=== PATIENT | female | born 1945 | race Hispanic/Latino ===

== ENCOUNTER 2019-01-10 15:33 | Emergency (ER) | payer MEDICARE ==
[~2019-01-10] VITALS: Ht 157.5 cm; Wt 59.9 kg
--- OUTSIDE RECORDS SUMMARY | 2019-01-10 15:37 | XMS REPORT | CCD ---
Author Author Auto Generated Organization [facility] Address Unknown Phone Unavailable Care Team Providers Care Merchandising Professor Name Role Phone Peter Do RP [phone] Hernan Ott CP Allergies, Adverse Reactions, Alerts Substance Reaction Status NKDA Active Problem List Condition Effective Dates Status Basal cell carcinoma of cheek Active GERD - Gastro-esophageal reflux disease Active Hyperlipidemia Active Hyperlipidemia Active Hypertension Active Hypertension Active Medications Medication Instructions Start Date End Date Status ondansetron 4 mg, 2 mL, Route: IVP, Drug form: 06/06/2013 06/07/2013 Discontinued INJ, ONCE, Dosing Weight 61.818, kg, PRN Nausea & Vomiting, Start date: 06/06/13 13:10:00(Same as: Zofran) naloxone 0.04 mg, 0.1 mL, Route: IVP, Drug 06/06/2013 06/07/2013 Completed form: INJ, Q2MIN, Dosing Weight 61.818, kg, PRN Narcotic Reversal, Start date: 06/06/13 13:10:00, Duration: 8 doses or times, Stop date: 06/07/13 0:00:00Same as Narcan flumazenil 0.2 mg, 2 mL, Route: IVP, Drug 06/06/2013 06/07/2013 Discontinued form: INJ, PRN, Dosing Weight 61.818, kg, PRN Benzodiazepine Reversal, Initial dose, Start date: 06/06/13 13:10:00, Duration: 1 day, Stop date: 06/07/13 13:09:00(Same as: Romazicon) hydromorphone 0.5 mg, 0.25 mL, Route: IVP, Drug 06/06/2013 06/07/2013 Completed form: INJ, Q5Min, Dosing Weight 61.818, kg, PRN Pain Score 7-10, Start date: 06/06/13 13:10:00, Duration: 5 doses or times, Stop date: 06/07/13 0:00:00(Same as: Dilaudid) Calcium 600 +D oral 1 tab, PO, TID, 270 tab, 06/06/2013 Ordered tablet Substitution Allowed, Maintenance, TAB Ancef 1 gm, Route: IVPB, ONCE, Dosing 06/06/2013 06/06/2013 Completed Weight 61.818, kg, Start date: 06/06/13 12:26:00, Duration: 1 doses or times, Stop date: 06/06/13 12:26:00 Crestor 20 mg oral 20 mg, 1 tab, PO, Daily, 30 tab, 06/05/2013 Ordered tablet Substitution Allowed, TAB Mel 5 mg-40 mg oral 1 tab, PO, Daily, 30 tab, 06/05/2013 Ordered tablet Substitution Allowed, Maintenance, TAB Vital Signs Most recent to oldest [Reference Range]: 1 2 3 Height 157.48 cm (06/06/2013 10:32:00) 152.4 cm (06/05/2013 11:45:00) Systolic Blood Pressure [90-140 mmHg] 144 mmHg *HI* (06/06/2013 13:55:00) 133 mmHg (06/06/2013 13:30:00) 120 mmHg (06/06/2013 13:15:00) Diastolic Blood Pressure [60-90 mmHg] 65 mmHg (06/06/2013 13:55:00) 64 mmHg (06/06/2013 13:30:00) 60 mmHg (06/06/2013 13:15:00) Respiratory Rate [14-20 BRMIN] 18 BRMIN (06/06/2013 13:55:00) 0 BRMIN *LOW* (06/06/2013 13:30:00) 0 BRMIN *LOW* (06/06/2013 13:15:00) Peripheral Pulse Rate [60-100 bpm] 87 bpm (06/06/2013 13:55:00) 105 bpm *HI* (06/06/2013 10:32:00) Weight 61.818 kg (06/06/2013 10:32:00) 61.818 kg (06/05/2013 11:45:00) Results CHEMISTRY Most recent to oldest [Reference Range]: 1 Sodium Lvl [135-145 mEq/L] 141 mEq/L (06/06/2013 11:00:55) Potassium Lvl [3.5-5.1 mEq/L] 4.2 mEq/L (06/06/2013:00:55) Chloride Lvl [95-109 mEq/L] 105 mEq/L (06/06/2013:00:55) CO2 [24-32 mEq/L] 25 mEq/L (06/06/2013:00:55) AGAP [10.0-20.0 mEq/L] 15.2 mEq/L (06/06/2013:00:55) Creatinine Lvl [0.5-1.4 mg/dL] 1.0 mg/dL (06/06/2013:00:55) eGFR 59 mL/min/1.73m2 1 *NA* (06/06/2013:00:55) BUN [7-22 mg/dL] 25 mg/dL *HI* (06/06/2013:00:55) Glucose Lvl [70-99 mg/dL] 102 mg/dL 2 *HI* (06/06/2013:00:55) Calcium Lvl [8.5-10.5 mg/dL] 9.5 mg/dL (06/06/2013:00:55) 1Result Comment: The eGFR is calculated using the CKD-EPI formula. In most young, healthy individuals the eGFR will be >90 mL/min/1.73m2. The eGFR declines with age. An eGFR of 60-89 may be normal in some populations, particularly the elderly, for whom the CKD-EPI formula has not been extensively validated. Use of the eGFR is not recommended in the following populations: Individuals with unstable creatinine concentrations, including patients and those with serious co-morbid conditions. Patients with extremes in muscle mass or diet. The data above are obtained from the National Kidney Disease Education Program ( NKDEP) which additionally recommends that when the eGFR is used in patients with extremes of body mass index for purposes of drug dosing, the eGFR should be mul tiplied by the estimated BMI. 2Interpretive Data: Adult reference range values reflect the clinical guidelines of the [place] Diabetes [employer]. Procedures Procedures Date Related Diagnosis Excision
--- OUTSIDE RECORDS SUMMARY | 2019-01-10 15:37 | XMS REPORT | CCD ---
Author Author Auto Generated Organization [facility] [place] [place] Address Unknown Phone Unavailable Care Team Providers Care Electron Gun Inspector Name Role Phone Peter Do RP [phone] Hernan Ott CP Allergies, Adverse Reactions, Alerts [...] values reflect the clinical guidelines of the [place] Diabetes Association. Procedures Procedures Date Related Diagnosis Excision
--- OUTSIDE RECORDS SUMMARY | 2019-01-10 15:37 | XMS REPORT | CCD ---
Author Author Auto Generated Organization [facility] Address Unknown Phone Unavailable Care Team Providers Care Third Helper Name Role Phone Peter Do RP [phone] RemediosHernan elizabeth Jamison CP Allergies, Adverse Reactions, Alerts Substance Reaction [...] 1 Sodium Lvl [135-145 mEq/L] 141 mEq/L (06/06/2013:00:55) Potassium Lvl [3.5-5.1 mEq/L] 4.2 mEq/L (06/06/2013:00:55) [...] values reflect the clinical guidelines of the [place] Diabetes Association. Procedures Procedures Date Related Diagnosis Excision
--- OUTSIDE RECORDS SUMMARY | 2019-01-10 15:37 | XMS REPORT | CCD ---
Author Author Auto Generated Organization [facility] Address Unknown Phone Unavailable Care Team Providers Care Personal Financial Representative Name Role Phone Peter Do RP [phone] Hernan Ott CP Allergies, Adverse Reactions, Alerts [...] values reflect the clinical guidelines of the [place] Diabetes Association. Procedures Procedures Date Related Diagnosis Excision
--- OUTSIDE RECORDS SUMMARY | 2019-01-10 15:37 | XMS REPORT | Summary of Care ---
Author Author [facility] Organization [facility] Address Unknown Phone Unavailable Encounter HQ Shiela(RORO) [id number] Date(s): 03/31/17 - 04/01/17 [facility] [address] [place] [address]- Discharge Disposition: Home or Self Care Attending Physician: Todd Marsh MD Admitting Physician: Todd Marsh MD Vital Signs 1 2 3 Most recent to oldest [Reference Range]: 157.48 cm (03/31/17 6:26 PM) 162.56 cm (03/31/17 2:16 PM) Height 98 DegF (04/01/17 7:42 AM) 98 DegF (04/01/17 3:22 AM) 98.1 DegF (03/31/17 11: PM) Temperature Oral [96.4-99.1 DegF] 119/64 mmHg (04/01/17 7:42 AM) 145/76 mmHg *HI* (04/01/17 3:22 AM) 133/73 mmHg (03/31/17 11:17 PM) Blood Pressure [90-140/60-90 mmHg] 18 BRMIN (04/01/17 7:42 AM) 18 BRMIN (04/01/17 3:22 AM) 18 BRMIN (03/31/17 11:17 PM) Respiratory Rate [14-20 BRMIN] 73 bpm (04/01/17 7:42 AM) 72 bpm (04/01/17 3:22 AM) 70 bpm (03/31/17 11:17 PM) Peripheral Pulse Rate [60-100 bpm] 61.5 kg (03/31/17 6:26 PM) 60 kg (03/31/17 2:16 PM) Weight 24.8 m2 (03/31/17 6:26 PM) 22.71 m2 (03/31/17 2:16 PM) Body Mass Index Problem List Condition Effective Dates Status Health Status Informant Basal cell carcinoma Resolved of cheek(Confirmed) GERD - Active Gastro-esophageal reflux disease(Confirmed) Hyperlipidemia(Confi Active rmed) Hyperlipidemia(Confi Active rmed) Hypertension(Confirm Active ed) Hypertension(Confirm Active ed) Allergies, Adverse Reactions, Alerts Substance Reaction Severity Status NKDA Active Medications aspirin 324 mg, 4 tab, Route: CHEW, Drug form: CHEWTAB, ONCE, Dosing Weight 60, kg, Prio rity: STAT, Start date: 03/31/17 14:34:00 CDT, Stop date: 03/31/17 14:34:00 CDT Notes: Take with food. Start Date: 03/31/17 Stop Date: 03/31/17 Status: Completed aspirin 81 mg tablet, chewable 81 mg, 1 tab, Route: PO, Drug form: CHEWTAB, Daily, Dosing Weight 61.5, kg, Star t date: 04/01/17 9:00:00 CDT, Duration: 30 day, Stop date: 04/30/17 9:00:00 CDT Notes: Take with food. Start Date: 04/01/17 Stop Date: 04/01/17 Status: Discontinued aspirin 81 mg tablet, chewable 81 mg=1 tab, PO, Daily, 0 Refill(s) Start Date: 04/01/17 Status: Ordered atorvastatin 10 mg, 1 tab, Route: PO, Drug form: TAB, Bedtime, Dosing Weight 61.5, kg, Start date: 03/31/17 21:00:00 CDT, Duration: 30 day, Stop date: 04/29/17 21:00:00 CDT Notes: (Same As: Lipitor) Start Date: 03/31/17 Stop Date: 04/01/17 Status: Discontinued atorvastatin 10 mg oral tablet 10 mg=1 tab, PO, Bedtime, # 30 tab, 0 Refill(s) Start Date: 03/31/17 Stop Date: 04/01/17 Status: Discontinued atorvastatin 10 mg oral tablet 10 mg=1 tab, PO, Bedtime, 0 Refill(s) Start Date: 04/01/17 Status: Ordered hydrALAZINE 10 mg, 0.5 mL, Route: IV, Drug form: INJ, Q4H, Dosing Weight 61.5, kg, PRN Hyper tension, Priority: Routine, Start date: 03/31/17 18:29:00 CDT, Duration: 30 day, Stop date: 04/30/17 18:28:00 CDT Notes: (Same as: Apresoline)Push over 5 minutes Start Date: 03/31/17 Stop Date: 04/01/17 Status: Discontinued hydrochlorothiazide 12.5 mg, PO, Daily, 0 Refill(s) Start Date: 03/31/17 Stop Date: 04/01/17 Status: Discontinued hydrochlorothiazide 12.5 mg, 1 tab, Route: PO, Drug form: TAB, Daily, Dosing Weight 61.5, kg, Start date: 04/01/17 9:00:00 CDT, Duration: 30 day, Stop date: 04/30/17 9:00:00 CDT Notes: (Same as: Hydrodiuril). Give with food. Start Date: 04/01/17 Stop Date: 04/01/17 Status: Discontinued hydrochlorothiazide 12.5 mg oral tablet 12.5 mg=1 tab, PO, Daily, 0 Refill(s) Start Date: 04/01/17 Status: Ordered ibuprofen 400 mg oral tablet 400 mg=1 tab, PO, Q8H, PRN Pain, X 14 day, # 42 tab, 0 Refill(s) Start Date: 04/01/17 Stop Date: 04/15/17 Status: Ordered ketOROLAC 15 mg, 1 mL, Route: IV, Drug form: INJ, Q6H, Dosing Weight 61.5, kg, PRN Pain Sc ore 6-10, Priority: Routine, Start date: 03/31/17 19:14:00 CDT, Duration: 4 day, Stop date: 04/04/17 19:13:00 CDT Notes: (Same as:Toradol) IV bolus must be given >15 seconds. Give IM administration slowly and deeply into the muscle. Not for use > 4 days. Start Date: 03/31/17 Stop Date: 04/01/17 Status: Discontinued olmesartan 20 mg, 1 tab, Route: PO, Drug form: TAB, Daily, Dosing Weight 61.5, kg, Start da te: 04/01/17 9:00:00 CDT, Duration: 30 day, Stop date: 04/30/17 9:00:00 CDT Start Date: 04/01/17 Stop Date: 04/01/17 Status: Discontinued olmesartan 20 mg oral tablet 20 mg=1 tab, PO, Daily, # 30 tab, 0 Refill(s) Start Date: 03/31/17 Stop Date: 04/01/17 Status: Discontinued olmesartan 20 mg oral tablet 20 mg=1 tab, PO, Daily, 0 Refill(s) Start Date: 04/01/17 Status: Ordered Saline Flush 0.9% 10 mL, Route: IVP, Drug Form: INJ, Dosing Weight 68.182, kg, PRN, PRN Line Flush , Start date: 03/31/17 14:00:00 CDT, Duration: 30 day, Stop date: 04/30/17 13:59 :00 CDT Notes: (Same as: BD Posiflush) Start Date: 03/31/17 Stop Date: 03/31/17 Status: Discontinued tramadol 50 mg oral tablet 50 mg, 1 tab, Route: PO, Drug form: TAB, ONCE, Dosing Weight 60, kg, Priority: S TAT, Start date: 03/31/17 17:40:00 CDT, Stop date: 03/31/17 17:40:00 CDT Notes: Not to exceed 400mg/day. (Same As: Ultram) Start Date: 03/31/17 Stop Date: 03/31/17 Status: Completed Results ELECTROLYTES Most recent to 1 2 oldest [Reference Range]: Sodium Lvl [135-145 139 mEq/L mEq/L] (03/31/17 2:11 PM) Potassium Lvl 3.8 mEq/L [3.5-5.1 mEq/L] (03/31/17 2:11 PM) Chloride Lvl [95-109 104 mEq/L mEq/L] (03/31/17 2:11 PM) CO2 [24-32 mEq/L] 28 mEq/L (03/31/17 2:11 PM) AGAP [10.0-20.0 10.8 mEq/L mEq/L] (03/31/17 2:11 PM) CHEM PANEL Most recent to 1 2 oldest [Reference Range]: Creatinine Lvl 1.10 mg/dL [0.50-1.40 mg/dL] (03/31/17 2:11 PM) eGFR 51 mL/min/1.73m2 1 *NA* (03/31/17 2:11 PM) BUN [7-22 mg/dL] 23 mg/dL *HI* (03/31/17 2:11 PM) B/C Ratio [6-25] 21 (03/31/17 2:11 PM) Glucose Lvl [70-99 102 mg/dL mg/dL] *HI* (03/31/17:11 PM) Total Protein 7.2 g/dL [6.4-8.4 g/dL] (03/31/17 2:11 PM) Albumin Lvl [3.5-5.0 3.6 g/dL g/dL] (03/31/17:11 PM) Globulin [2.7-4.2 3.6 g/dL g/dL] (03/31/17 2:11 PM) A/G Ratio [0.7-1.6] 1.0 (03/31/17:11 PM) Calcium Lvl 9.4 mg/dL [8.5-10.5 mg/dL] (03/31/17 2:11 PM) Magnesium Lvl 2.0 mg/dL [1.8-2.4 mg/dL] (03/31/17 2:11 PM) ALT [0-65 unit/L] 22 unit/L (03/31/17 2:11 PM) AST [0-37 unit/L] 16 unit/L (03/31/17 2:11 PM) Alk Phos [39-136 67 unit/L unit/L] (03/31/17 2:11 PM) Bili Total [0.2-1.3 0.3 mg/dL mg/dL] (03/31/17 2:11 PM) 1Result Comment: The eGFR is calculated using [...] be mul tiplied by the estimated BMI. CARDIAC ENZYMES Most recent to 1 2 oldest [Reference Range]: Total CK [12-191 92 unit/L 105 unit/L unit/L] (03/31/17 7:17 PM) (03/31/17 2:11 PM) CK MB [0.5-3.6 <0.5 ng/mL <0.5 ng/mL ng/mL] (03/31/17 7:17 PM) (03/31/17 2:11 PM) CK MB Index <0.5 <0.5 [0.0-2.5] (03/31/17 7:17 PM) (03/31/17 2:11 PM) Troponin-I <0.02 ng/mL <0.02 ng/mL [0.00-0.40 ng/mL] (03/31/17 7:17 PM) (03/31/17 2:11 PM) HEMATOLOGY Most recent to 1 2 oldest [Reference Range]: WBC [3.7-10.4 K/CMM] 6.3 K/CMM (03/31/17 2:11 PM) RBC [4.20-5.40 4.16 M/CMM M/CMM] *LOW* (03/31/17 2:11 PM) Hgb [12.0-16.0 g/dL] 12.1 g/dL (03/31/17 2:11 PM) Hct [36.0-48.0 %] 36.5 % (03/31/17 2:11 PM) MCV [80.0-98.0 fL] 87.9 fL (03/31/17 2:11 PM) MCH [27.0-31.0 pg] 29.1 pg (03/31/17 2:11 PM) MCHC [32.0-36.0 33.1 g/dL g/dL] (03/31/17 2:11 PM) RDW [11.5-14.5 %] 14.0 % (03/31/17 2:11 PM) Platelet [133-450 277 K/CMM K/CMM] (03/31/17 2:11 PM) MPV [7.4-10.4 fL] 7.9 fL (03/31/17 2:11 PM) Segs [45.0-75.0 %] 56.1 % (03/31/17 2:11 PM) Lymphocytes 32.1 % [20.0-40.0 %] (03/31/17 2:11 PM) Monocytes [2.0-12.0 6.3 % %] (03/31/17 2:11 PM) Eosinophils [0.0-4.0 5.1 % %] *HI* (03/31/17 2:11 PM) Basophils [0.0-1.0 0.4 % %] (03/31/17 2:11 PM) Segs-Bands # 3.5 K/CMM [1.5-8.1 K/CMM] (03/31/17 2:11 PM) Lymphocytes # 2.0 K/CMM [1.0-5.5 K/CMM] (03/31/17 2:11 PM) Monocytes # [0.0-0.8 0.4 K/CMM K/CMM] (03/31/17 2:11 PM) Eosinophils # 0.3 K/CMM [0.0-0.5 K/CMM] (03/31/17 2:11 PM) PT [12.0-14.7 13.1 seconds seconds] (03/31/17 2:11 PM) INR [0.85-1.17] 0.97 (03/31/17 2:11 PM) PTT [22.9-35.8 34.9 seconds seconds] (03/31/17 2:11 PM) Immunizations No data available for this section Procedures Procedure Date Related Diagnosis Body Site Excision Social History Social History Type Response Alcohol Never Smoking Status Never smoker; Exposure to Tobacco Smoke None; Cigarette Smoking Last 365 Days No; Reg Smoking Cessation Counseling No Assessment and Plan Extracted from: Title: Clinical Document Author: Todd Marsh MD Date: 04/01/17 Todd Marsh M.D. [facility] Admitting diagnosis: Chest pain Other Diagnosis:Chest pain; low risk stress test PAST MEDICAL HISTORY: 1. Hypertension. 2. Mixed hyperlipidemia. 3. Prior history of right cheek basal cell cancer. PHYSICAL EXAMINATION: VITAL SIGNS: VitalsTmp(F)Tmp(C)[id number] 04/01 07:[id number]------ 04/01 03:[id number]------ 03/31 23:[id number]------ 03/31 18:[id number]------ 03/31 17:[id number]---[id number]------ NECK: No JVD. HEENT: EOMI. HEART: S1, S2 normal. No murmur, no rub, no gallop. CHEST: Bilateral air entry present. No wheezing. No crepitation. ABDOMEN: Bowel sounds present. Nontender, nondistended. NEUROLOGIC: Alert, awake, and oriented x 3. No lateralization. EXTREMITIES: No edema. Labs & Diagnostic Work up: Labs (Last four charted values) WBC 6.3(MAR 31) Hgb 12.1(MAR 31) Hct 36.5(MAR 31) Plt 277(MAR 31) Na 139(MAR 31) K 3.8(MAR 31) CO2 28(MAR 31) Cl 104(MAR 31) Cr 1.10(MAR 31) BUN H 23(MAR 31) Glucose Random H 102(MAR 31) Mg 2.0(MAR 31) Ca 9.4(MAR 31) PT 13.1(MAR 31) INR 0.97(MAR 31) PTT 34.9(MAR 31) Troponin <0.02(MAR 31)<0.02(MAR 31) CK MB <0.5(MAR 31)<0.5(MAR 31) Total CK 92(MAR 31)105(MAR 31) Medications Medications (6) Active Scheduled: (4) aspirin 81 mg CHEW TAB 81 mg 1 tab, PO, Daily atorvastatin 10 mg TAB 10 mg 1 tab, PO, Bedtime hydrochlorothiazide 12.5 mg TAB 12.5 mg 1 tab, PO, Daily olmesartan 20 mg tab 20 mg 1 tab, PO, Daily Continuous: (0) PRN: (2) hydrALAZINE 20 mg/1 ml VL 10 mg 0.5 mL, IV, Q4H ketOROLAC 15 mg/1 ml INJ VL 15 mg 1 mL, IV, Q6H Hospital Course: Mrs Foss was admitted for chest pain.She was ruled out for NSTEMI. She underwent treadmill SPECT that was negative for ischemia. She was discharged with following recommendations and trial of NSAID: Diet: heart healthy Activity: as tolerated Follow up with DR Marsh 04/11/2017 at 1400 PM MEDS: per med rec Condition: [place]
--- OUTSIDE RECORDS SUMMARY | 2019-01-10 15:37 | XMS REPORT | CCD ---
Author Author Auto Generated Organization [facility] Address Unknown Phone Unavailable Care Team Providers Care Weigher Operator Name Role Phone Peter Do RP [phone] Hernan Ott CP Allergies, Adverse Reactions, Alerts [...] values reflect the clinical guidelines of the [place] [employer]. Procedures Procedures Date Related Diagnosis Excision
--- OUTSIDE RECORDS SUMMARY | 2019-01-10 15:37 | XMS REPORT | Summary of Care ---
Author Organization Unknown Address Unknown Phone Unavailable Encounter PHILOMENA Kuo(RORO) [id number] Date(s): 10/17/14 - 10/17/14 [facility] [address] [place] [address]- Discharge Diagnosis: Dehydration Discharge Diagnosis: Acute gastroenteritis Discharge Disposition: Home Physician Attending: Allyson Horta DO Vital Signs 1 2 3 Most recent to oldest [Reference Range]: 98.9 DegF (10/17/14 8:25 AM) Temperature Oral [96.4-99.1 DegF] 108/42 mmHg (10/17/14 8:25 AM) 96/52 mmHg (10/17/14 7:13 AM) 124/103 mmHg (10/17/14 7:00 AM) Blood Pressure [90-140/60-90 mmHg] 18 BRMIN (10/17/14 8:25 AM) 18 BRMIN (10/17/14 7:13 AM) 18 BRMIN (10/17/14 7:00 AM) Respiratory Rate [14-20 BRMIN] 85 bpm (10/17/14 8:25 AM) 94 bpm (10/17/14 7:13 AM) 65 bpm (10/17/14 7:00 AM) Peripheral Pulse Rate [60-100 bpm] 68.182 kg (10/17/14 5:03 AM) Weight Problem List Condition Effective Dates Status Health Status Informant Basal cell carcinoma Resolved of cheek(Confirmed) GERD - Active Gastro-esophageal reflux disease(Confirmed) Hyperlipidemia(Confi Active rmed) Hyperlipidemia(Confi Active rmed) Hypertension(Confirm Active ed) Hypertension(Confirm Active ed) Allergies, Adverse Reactions, Alerts Substance Reaction Severity Status NKDA Active Medications Bentyl 20 mg, 1 tab, Route: PO, Drug form: TAB, ONCE, Dosing Weight 68.182, kg, Start d ate: 10/17/14 5:33:00, Stop date: 10/17/14 5:33:00 Notes: (Same as: Bentyl) Start Date: 10/17/14 Stop Date: 10/17/14 Status: Completed Bentyl 20 mg oral tablet 20 mg=1 tab, PO, QID, # 28 tab, 0 Refill(s) Start Date: 10/17/14 Stop Date: 10/24/14 Status: Ordered morphine Sulfate 4 mg, Route: IVP, ONCE, Dosing Weight 68.182, kg, Priority: STAT, Start date: 5:32:00, Stop date: 10/17/14 5:32:00 Start Date: 10/17/14 Stop Date: 10/17/14 Status: Completed ondansetron 4 mg, Route: IVP, Drug form: INJ, ONCE, Dosing Weight 68.182, kg, Priority: STAT , Start date: 10/17/14 5:32:00, Stop date: 10/17/14 5:32:00 Start Date: 10/17/14 Stop Date: 10/17/14 Status: Completed Sodium Chloride 0.9% (Bolus) IV 1,000 mL, 1,000 ml/hr, Infuse Over: 1 hr, Route: IV, ONCE, Priority: STAT, Dosin g Weight 68.182 kg, Start date: 10/17/14 5:32:00, Duration: 1 doses or times, St op date: 10/17/14 5:32:00 Start Date: 10/17/14 Stop Date: 10/17/14 Status: Completed Results ELECTROLYTES Most recent to 1 oldest [Reference Range]: Sodium Lvl [135-145 138 mEq/L mEq/L] (10/17/14 5:54 AM) Potassium Lvl 4.0 mEq/L [3.5-5.1 mEq/L] (10/17/14 5:54 AM) Chloride Lvl [95-109 104 mEq/L mEq/L] (10/17/14 5:54 AM) CO2 [24-32 mEq/L] 23 mEq/L *LOW* (10/17/14 5:54 AM) AGAP [10.0-20.0 15.0 mEq/L mEq/L] (10/17/14 5:54 AM) CHEM PANEL Most recent to 1 oldest [Reference Range]: Creatinine Lvl 1.5 mg/dL [0.5-1.4 mg/dL] *HI* (10/17/14 5:54 AM) eGFR 36 mL/min/1.73m2 1 *NA* (10/17/14 5:54 AM) BUN [7-22 mg/dL] 29 mg/dL *HI* (10/17/14 5:54 AM) B/C Ratio [6-25] 19 (10/17/14 5:54 AM) Glucose Lvl [70-99 153 mg/dL 2 mg/dL] *HI* (10/17/14 5:54 AM) Total Protein 8.1 g/dL [6.4-8.4 g/dL] (10/17/14 5:54 AM) Albumin Lvl [3.5-5.0 4.3 g/dL g/dL] (10/17/14 5:54 AM) Globulin [2.0-4.0 3.8 g/dL g/dL] (10/17/14 5:54 AM) A/G Ratio [0.7-1.6] 1.1 (10/17/14 5:54 AM) Calcium Lvl 9.9 mg/dL [8.5-10.5 mg/dL] (10/17/14 5:54 AM) ALT [0-65 unit/L] 23 unit/L (10/17/14 5:54 AM) AST [0-37 unit/L] 21 unit/L (10/17/14 5:54 AM) Alk Phos [39-136 74 unit/L unit/L] (10/17/14 5:54 AM) Bili Total [0.2-1.3 0.6 mg/dL mg/dL] (10/17/14 5:54 AM) 1Result Comment: The eGFR is calculated using [...] values reflect the clinical guidelines of the [place] Diabetes [employer]. URINE AND STOOL Most recent to 1 oldest [Reference Range]: UA Turbidity [Clear] Slight Cloudy (10/17/14 7:16 AM) UA Color [Yellow] Yellow *NA* (10/17/14 7:16 AM) UA pH [5.0-8.0] 5.5 (10/17/14 7:16 AM) UA Spec Grav >=1.030 [<=1.030] *ABN* (10/17/14 7:16 AM) UA Glucose Negative [Negative] (10/17/14 7:16 AM) UA Blood [Negative] Trace *ABN* (10/17/14 7:16 AM) UA Ketones 15 [Negative] *ABN* (10/17/14 7:16 AM) UA Protein [Negative 100 mg/dL mg/dL] *ABN* (10/17/14 7:16 AM) UA Urobilinogen 0.2 EU/dL [0.1-1.0 EU/dL] (10/17/14 7:16 AM) UA Bili [Negative] Moderate *ABN* (10/17/14 7:16 AM) UA Leuk Est Negative [Negative] (10/17/14 7:16 AM) UA Nitrite Negative [Negative] (10/17/14 7:16 AM) UA WBC [0-5 /HPF] 0-2 /HPF (10/17/14 7:16 AM) UA RBC [0-2] None Seen (10/17/14 7:16 AM) UA Bacteria [None Moderate /HPF Seen /HPF] *ABN* (10/17/14 7:16 AM) UA Sq Epi [Few /LPF] Many /LPF *ABN* (10/17/14 7:16 AM) UA Hyal Cast [0-2 6-10 /LPF /LPF] (10/17/14 7:16 AM) UA Mucus [None Seen Moderate /LPF /LPF] *ABN* (10/17/14 7:16 AM) HEMATOLOGY Most recent to 1 oldest [Reference Range]: WBC [3.7-10.4 K/CMM] 21.4 K/CMM *HI* (10/17/14 5:54 AM) RBC [4.20-5.40 5.00 M/CMM M/CMM] (10/17/14 5:54 AM) Hgb [12.0-16.0 g/dL] 14.5 g/dL (10/17/14 5:54 AM) Hct [36.0-48.0 %] 43.1 % (10/17/14 5:54 AM) MCV [80.0-98.0 fL] 86.2 fL (10/17/14 5:54 AM) MCH [27.0-31.0 pg] 29.0 pg (10/17/14 5:54 AM) MCHC [32.0-36.0 33.6 g/dL g/dL] (10/17/14 5:54 AM) RDW [11.5-14.5 %] 13.5 % (10/17/14 5:54 AM) Platelet [133-450 383 K/CMM K/CMM] (10/17/14 5:54 AM) MPV [7.4-10.4 fL] 7.4 fL (10/17/14 5:54 AM) Segs [45.0-75.0 %] 95.5 % *HI* (10/17/14 5:54 AM) Lymphocytes 2.4 % [20.0-40.0 %] *LOW* (10/17/14 5:54 AM) Monocytes [2.0-12.0 1.8 % %] *LOW* (10/17/14 5:54 AM) Eosinophils [0.0-4.0 0.2 % %] (10/17/14 5:54 AM) Basophils [0.0-1.0 0.1 % %] (10/17/14 5:54 AM) Segs-Bands # 20.5 K/CMM [1.5-8.1 K/CMM] *HI* (10/17/14 5:54 AM) Lymphocytes # 0.5 K/CMM [1.0-5.5 K/CMM] *LOW* (10/17/14 5:54 AM) Monocytes # [0.0-0.8 0.4 K/CMM K/CMM] (10/17/14 5:54 AM) Immunizations No data available for this section Procedures No data available for this section Social History Social History Type Response Smoking Status Never smoker; Exposure to Tobacco Smoke None; Cigarette Smoking Last 365 Days No; Reg Smoking Cessation Counseling No Assessment and Plan No data available for this section
--- OUTSIDE RECORDS SUMMARY | 2019-01-10 15:37 | XMS REPORT | Continuity of Care Document ---
Author Author [facility] Interface Address Unknown Phone Unavailable Problems Problem Status Onset Date Classification Date Reported Comments Source CHEST PAIN Active 03/31/2017 [facility] ACS Active 03/31/2017 [facility] Discharge Diagnosis: Dehydration 10/17/2014 10/19/2014 [facility] Discharge Diagnosis: Acute gastroenteritis 10/17/2014 10/19/2014 [facility] VOMITING Active 10/17/2014 [facility] Discharge Diagnosis: Palpitations 05/09/2014 05/12/2014 [facility] CHEST PAINS Active 05/09/2014 [facility] BASAL CELL CARCINOMA OF RIGHT CHEEK Active 04/17/2013 [facility] Basal cell carcinoma of cheek Resolved Problem 04/04/2017 [facility] GERD - Gastro-esophageal reflux disease Active Problem 04/04/2017 [facility] Hyperlipidemia Active Problem 04/04/2017 [facility] Hypertension Active Problem 04/04/2017 [facility] BASAL CELL CA SKIN NOS Active [facility] Medications Medication Details Route Status Patient Instructions Ordering Provider Order Date Source Ibuprofen 400 MG Oral Tablet 400 mg=1 tab, PO, Q8H, PRN Pain, X 14 day, # 42 tab, 0 Refill(s) Active 04/01/2017 [facility] olmesartan 20 mg oral tablet 20 mg=1 tab, PO, Daily, 0 Refill(s) Active 04/01/2017 [facility] hydrochlorothiazide 12.5 mg oral tablet 12.5 mg=1 tab, PO, Daily, 0 Refill(s) Active 04/01/2017 [facility] atorvastatin 10 mg oral tablet 10 mg=1 tab, PO, Bedtime, 0 Refill(s) Active 04/01/2017 [facility] Aspirin 81 MG Chewable Tablet 81 mg=1 tab, PO, Daily, 0 Refill(s) Active 04/01/2017 [facility] olmesartan 20 mg, 1 tab, Route: PO, Drug form: TAB, Daily, Dosing Weight 61.5, kg, Start date: 04/01/17 9:00:00 CDT, Duration: 30 day, Stop date: 04/30/17 9:00:00 CDT Inactive 04/01/2017 [facility] Hydrochlorothiazide 12.5 mg, 1 tab, Route: PO, Drug form: TAB, Daily, Dosing Weight 61.5, kg, Start date: 04/01/17 9:00:00 CDT, Duration: 30 day, Stop date: 04/30/17 9:00:00 CDTNotes: (Same as: Hydrodiuril). Give with food. Inactive 04/01/2017 [facility] Aspirin 81 MG Chewable Tablet 81 mg, 1 tab, Route: PO, Drug form: CHEWTAB, Daily, Dosing Weight 61.5, kg, Start date: 04/01/17 9:00:00 CDT, Duration: 30 day, Stop date: 04/30/17 9:00:00 CDTNotes: Take with food. Inactive 04/01/2017 [facility] atorvastatin 10 mg, 1 tab, Route: PO, Drug form: TAB, Bedtime, Dosing Weight 61.5, kg, Start date: 03/31/17 21:00:00 CDT, Duration: 30 day, Stop date: 04/29/17 21:00:00 CDTNotes: (Same As: Lipitor) No Longer Active 04/01/2017 [facility] Ketorolac 15 mg, 1 mL, Route: IV, Drug form: INJ, Q6H, Dosing Weight 61.5, kg, PRN Pain Score 6-10, Priority: Routine, Start date: 03/31/17 19:14:00 CDT, Duration: 4 day, Stop date: 04/04/17 19:13:00 CDTNotes: (Same as:Toradol) IV bolus must be given >15 seconds. Give IM administration slowly and deeply into the muscle. Not for use > 4 days. No Longer Active 04/01/2017 [facility] Hydrochlorothiazide 12.5 mg, PO, Daily, 0 Refill(s) No Longer Active 03/31/2017 [facility] olmesartan 20 mg oral tablet 20 mg=1 tab, PO, Daily, # 30 tab, 0 Refill(s) No Longer Active 03/31/2017 [facility] atorvastatin 10 mg oral tablet 10 mg=1 tab, PO, Bedtime, # 30 tab, 0 Refill(s) No Longer Active 03/31/2017 [facility] Hydralazine 10 mg, 0.5 mL, Route: IV, Drug form: INJ, Q4H, Dosing Weight 61.5, kg, PRN Hypertension, Priority: Routine, Start date: 03/31/17 18:29:00 CDT, Duration: 30 day, Stop date: 04/30/17 18:28:00 CDTNotes: (Same as: Apresoline) Push over 5 minutes No Longer Active 03/31/2017 [facility] tramadol hydrochloride 50 MG Oral Tablet 50 mg, 1 tab, Route: PO, Drug form: TAB, ONCE, Dosing Weight 60, kg, Priority: STAT, Start date: 03/31/17 17:40:00 CDT, Stop date: 03/31/17 17:40:00 CDTNotes: Not to exceed 400mg/day. (Same As: Ultram) Inactive 03/31/2017 [facility] Aspirin 324 mg, 4 tab, Route: CHEW, Drug form: CHEWTAB, ONCE, Dosing Weight 60, kg, Priority: STAT, Start date: 03/31/17 14:34:00 CDT, Stop date: 03/31/17 14:34:00 CDTNotes: Take with food. Inactive 03/31/2017 [facility] Saline Flush 0.9% 10 mL, Route: IVP, Drug Form: INJ, Dosing Weight 68.182, kg, PRN, PRN Line Flush, Start date: 03/31/17 14:00:00 CDT, Duration: 30 day, Stop date: 04/30/17 13:59:00 CDTNotes: (Same as: BD Posiflush) Inactive 03/31/2017 [facility] Dicyclomine Hydrochloride 20 MG Oral Tablet [Bentyl] 20 mg=1 tab, PO, QID, # 28 tab, 0 Refill(s) Active 10/17/2014 [facility] Bentyl 20 mg, 1 tab, Route: PO, Drug form: TAB, ONCE, Dosing Weight 68.182, kg, Start date: 10/17/14 5:33:00, Stop date: 10/17/14 5:33:00Notes: (Same as: Bentyl) Inactive 10/17/2014 [facility] Ondansetron 4 mg, Route: IVP, Drug form: INJ, ONCE, Dosing Weight 68.182, kg, Priority: STAT, Start date: 10/17/14 5:32:00, Stop date: 10/17/14 5:32:00 Inactive 10/17/2014 [facility] Morphine 4 mg, Route: IVP, ONCE, Dosing Weight 68.182, kg, Priority: STAT, Start date: 10/17/14 5:32:00, Stop date: 10/17/14 5:32:00 Inactive 10/17/2014 [facility] Sodium Chloride 0.154 MEQ/ML Injectable Solution 1,000 mL, 1,000 ml/hr, Infuse Over: 1 hr, Route: IV, ONCE, Priority: STAT, Dosing Weight 68.182 kg, Start date: 10/17/14 5:32:00, Duration: 1 doses or times, Stop date: 10/17/14 5:32:00 Inactive 10/17/2014 [facility] ondansetron 4 mg, 2 mL, Route: IVP, Drug form: INJ, ONCE, Dosing Weight 61.818, kg, PRN Nausea & Vomiting, Start date: 06/06/13 13:10:00(Same as: Zofran) No Longer Active [place] 06/06/2013 [facility] naloxone 0.04 mg, 0.1 mL, Route: IVP, Drug form: INJ, Q2MIN, Dosing Weight 61.818, kg, PRN Narcotic Reversal, Start date: 06/06/13 13:10:00, Duration: 8 doses or times, Stop date: 06/07/13 0:00:00Same as Narcan No Longer Active [facility] 06/06/2013 [facility] flumazenil 0.2 mg, 2 mL, Route: IVP, Drug form: INJ, PRN, Dosing Weight 61.818, kg, PRN Benzodiazepine Reversal, Initial dose, Start date: 06/06/13 13:10:00, Duration: 1 day, Stop date: 06/07/13 13:09:00(Same as: Romazicon) No Longer Active [facility] 06/06/2013 [facility] hydromorphone 0.5 mg, 0.25 mL, Route: IVP, Drug form: INJ, Q5Min, Dosing Weight 61.818, kg, PRN Pain Score 7-10, Start date: 06/06/13 13:10:00, Duration: 5 doses or times, Stop date: 06/07/13 0:00:00(Same as: Dila udid) No Longer Active [place] 06/06/2013 [facility] Ancef 1 gm, Route: IVPB, ONCE, Dosing Weight 61.818, kg, Start date: 06/06/13 12:26:00, Duration: 1 doses or times, Stop date: 06/06/13 12:26:00 Inactive Freet 06/06/2013 [facility] Calcium 600 +D oral tablet 1 tab, PO, TID, 270 tab, Substitution Allowed, Maintenance, TAB Active 06/06/2013 [facility] Crestor 20 mg oral tablet 20 mg, 1 tab, PO, Daily, 30 tab, Substitution Allowed, TAB Active 06/05/2013 [facility] Mel 5 mg-40 mg oral tablet 1 tab, PO, Daily, 30 tab, Substitution Allowed, Maintenance, TAB Active 06/05/2013 [facility] Allergies, Adverse Reactions, Alerts Substance Category Reaction Severity Reaction type Status Date Reported Comments Source Immunizations Immunization Date Given Site Status Last Updated Comments Source Results Order Name Results Value Reference Range Date Interpretation Comments Source Cardiac SPECT multi studies [place] Cardiac SPECT multi studies [place] Location: [facility] The patient exercised for 6minutes on Jeramie protocol. The resting hear rate was 93 per minute and peak heart rate was 173 per minute. The patient reached 114% of the target heart rate. The patient reached 7 METS. Cardiolite was injected during peak stress as well as during rest. The myocardial perfusion was obtained using standard procedure. The myocardial perfusion was normal during both phases. No evidence of ischemia. Ejection fraction was >65% with normal wall motion. TID 0.8 Conclusion: Maximal treadmill Nuclear stress test. Adequate hemodynamic response to exercise Test is negative for exercise induced chest pain or EKG changes of ischemia Newton treadmill score + 6 Normal myocardial perfusion study. Reading Location-[facility] 04/01/2017 - - Read by: Todd Marsh MD Dictated Date/time: 04/01/17 15:32 Electronically Signed by: Todd Marsh MD 04/01/17 15:34 FINAL REPORT [facility] CARDIAC ENZYMES Total CK 92 unit/L 12 - 191 04/01/2017 [facility] CARDIAC ENZYMES Troponin-I null 0.00 - 0.40 04/01/2017 [facility] CARDIAC ENZYMES CK MB Index null 0.0 - 2.5 04/01/2017 [facility] CARDIAC ENZYMES CK MB null 0.5 - 3.6 04/01/2017 [facility] CARDIAC ENZYMES CK MB Index null 0.0 - 2.5 03/31/2017 [facility] CARDIAC ENZYMES Troponin-I null 0.00 - 0.40 03/31/2017 [facility] CARDIAC ENZYMES Total CK 105 unit/L 12 - 191 03/31/2017 [facility] CARDIAC ENZYMES CK MB null 0.5 - 3.6 03/31/2017 [facility] CHEM PANEL Magnesium Lvl 2.0 mg/dL 1.8 - 2.4 03/31/2017 [facility] CHEM PANEL eGFR 51 mL/min/1.73m2 03/31/2017 Result Comment: The eGFR is calculated using the [...] from the National Kidney Disease Education Program (NKDEP) which additionally recommends that when the eGFR is used in patients with extremes of body mass index for purposes of drug dosing, the eGFR should be multiplied by the estimated BMI. [facility] CHEM PANEL B/C Ratio 21 6 - 25 03/31/2017 [facility] CHEM PANEL AST 16 unit/L 0 - 37 03/31/2017 [facility] CHEM PANEL ALT 22 unit/L 0 - 65 03/31/2017 [facility] CHEM PANEL Albumin Lvl 3.6 g/dL 3.5 - 5.0 03/31/2017 [facility] CHEM PANEL BUN 23 mg/dL 7 - 22 03/31/2017 [facility] CHEM PANEL Creatinine Lvl 1.10 mg/dL 0.50 - 1.40 03/31/2017 [facility] CHEM PANEL Sodium Lvl 139 meq/L 135 - 145 03/31/2017 [facility] CHEM PANEL Glucose Lvl 102 mg/dL 70 - 99 03/31/2017 [facility] CHEM PANEL Calcium Lvl 9.4 mg/dL 8.5 - 10.5 03/31/2017 [facility] CHEM PANEL AGAP 10.8 meq/L 10.0 - 20.0 03/31/2017 [facility] CHEM PANEL CO2 28 meq/L 24 - 32 03/31/2017 [facility] CHEM PANEL Potassium Lvl 3.8 meq/L 3.5 - 5.1 03/31/2017 [facility] CHEM PANEL Chloride Lvl 104 meq/L 95 - 109 03/31/2017 [facility] CHEM PANEL A/G Ratio 1.0 0.7 - 1.6 03/31/2017 [facility] CHEM PANEL Globulin 3.6 g/dL 2.7 - 4.2 03/31/2017 [facility] CHEM PANEL Bili Total 0.3 mg/dL 0.2 - 1.3 03/31/2017 [facility] CHEM PANEL Alk Phos 67 unit/L 39 - 136 03/31/2017 [facility] CHEM PANEL Total Protein 7.2 g/dL 6.4 - 8.4 03/31/2017 [facility] HEMATOLOGY Segs-Bands # 3.5 K/CMM 1.5 - 8.1 03/31/2017 [facility] HEMATOLOGY Eosinophils 5.1 % 0.0 - 4.0 03/31/2017 [facility] HEMATOLOGY Lymphocytes # 2.0 K/CMM 1.0 - 5.5 03/31/2017 [facility] HEMATOLOGY Basophils 0.4 % 0.0 - 1.0 03/31/2017 [facility] HEMATOLOGY Monocytes # 0.4 K/CMM 0.0 - 0.8 03/31/2017 [facility] HEMATOLOGY Eosinophils # 0.3 K/CMM 0.0 - 0.5 03/31/2017 [facility] HEMATOLOGY Lymphocytes 32.1 % 20.0 - 40.0 03/31/2017 [facility] HEMATOLOGY Segs 56.1 % 45.0 - 75.0 03/31/2017 [facility] HEMATOLOGY Monocytes 6.3 % 2.0 - 12.0 03/31/2017 [facility] HEMATOLOGY PTT 34.9 s 22.9 - 35.8 03/31/2017 [facility] HEMATOLOGY INR 0.97 0.85 - 1.17 03/31/2017 [facility] HEMATOLOGY PT 13.1 s 12.0 - 14.7 03/31/2017 [facility] HEMATOLOGY MPV 7.9 fL 7.4 - 10.4 03/31/[address] [facility] MCV 87.9 fL 80.0 - 98.0 03/31/2017 [facility] HEMATOLOGY Hct 36.5 % 36.0 - 48.0 03/31/[address] [facility] Hgb 12.1 g/dL 12.0 - 16.0 03/31/[address] [facility] MCH 29.1 pg 27.0 - 31.0 03/31/[address] [facility] RBC 4.16 M/CMM 4.20 - 5.40 03/31/[address] [facility] WBC 6.3 K/CMM 3.7 - 10.4 03/31/[address] [facility] MCHC 33.1 g/dL 32.0 - 36.0 03/31/[address] [facility] Platelet 277 K/CMM 133 - 450 03/31/[address] [facility] RDW 14.0 % 11.5 - 14.5 03/31/2017 [facility] Chest 1view DX Chest 1view DX Patient Name: GWENDOLYN THOMSON : 1945; Age: 71 years y/o Female MR: [id number] * CHEST, portable, 1 view HISTORY: - chest pain COMPARISON: 05/09/2014. A study of 04/16/2008 was also reviewed. TECHNIQUE: A portable frontal radiograph of the chest was obtained. FINDINGS: There is no evidence of an active or acute process within the chest. The lungs are clear. There are no pleural effusions. The heart is normal in size. The regional skeleton is unremarkable. IMPRESSION: 1. No active disease. SL: [id number] 03/31/2017 - - Read by: Trev Luke MD Dictated Date/time: 03/31/17 14:43 Electronically Signed by: Trev Luke MD 03/31/17 14:43 FINAL REPORT [facility] URINE AND STOOL UA Hyal Cast 6- 10 /LPF 0 - 2 10/17/2014 [facility] URINE AND STOOL UA Mucus Moderate /LPF None Seen /LPF 10/17/2014 [facility] URINE AND STOOL UA RBC None Seen (10/17/14 7:16 AM) 0 - 2 10/17/2014 [facility] URINE AND STOOL UA WBC 0-2 /HPF 0 - 5 10/17/2014 [facility] URINE AND STOOL UA Bacteria Moderate /HPF None Seen /HPF 10/17/2014 [facility] URINE AND STOOL UA Nitrite Negative (10/17/14 7:16 AM) Negative 10/17/2014 [facility] URINE AND STOOL UA Sq Epi Many /LPF Few /LPF 10/17/2014 [facility] URINE AND STOOL UA Leuk Est Negative (10/17/14 7:16 AM) Negative 10/17/2014 [facility] URINE AND STOOL UA Urobilinogen 0.2 EU/dL 0.1 - 1.0 10/17/2014 [facility] URINE AND STOOL UA Blood Trace *ABN* (10/17/14 7:16 AM) Negative 10/17/2014 [facility] URINE AND STOOL UA Bili Moderate *ABN* (10/17/14 7:16 AM) Negative 10/17/2014 [facility] URINE AND STOOL UA pH 5.5 5.0 - 8.0 10/17/2014 [facility] URINE AND STOOL UA Spec Grav >=1.030 *ABN* (10/17/14 7:16 AM) <=1.030 10/17/2014 [facility] URINE AND STOOL UA Color Yellow *NA* (10/17/14 7:16 AM) Yellow 10/17/2014 [facility] URINE AND STOOL UA Turbidity Slight Cloudy (10/17/14 7:16 AM) Clear 10/17/2014 [facility] URINE AND STOOL UA Ketones 15 *ABN* (10/17/14 7:16 AM) Negative 10/17/2014 [facility] URINE AND STOOL UA Glucose Negative (10/17/14 7:16 AM) Negative 10/17/2014 [facility] URINE AND STOOL UA Protein 100 mg/dL Negative mg/dL 10/17/2014 [facility] ELECTROLYTES Sodium Lvl 138 meq/L 135 - 145 10/17/2014 [facility] ELECTROLYTES Potassium Lvl 4.0 meq/L 3.5 - 5.1 10/17/2014 [facility] ELECTROLYTES Chloride Lvl 104 meq/L 95 - 109 10/17/2014 [facility] ELECTROLYTES eGFR 36 mL/min/1.73m2 10/17/2014 1Result Comment: The eGFR is calculated using [...] from the National Kidney Disease Education Program (NKDEP) which additionally recommends that when the eGFR is used in patients with extremes of body mass index for purposes of drug dosing, the eGFR should be multiplied by the estimated BMI. [facility] ELECTROLYTES Alk Phos 74 unit/L 39 - 136 10/17/2014 [facility] ELECTROLYTES Bili Total 0.6 mg/dL 0.2 - 1.3 10/17/2014 [facility] ELECTROLYTES Total Protein 8.1 g/dL 6.4 - 8.4 10/17/2014 [facility] ELECTROLYTES Albumin Lvl 4.3 g/dL 3.5 - 5.0 10/17/2014 [facility] ELECTROLYTES ALT 23 unit/L 0 - 65 10/17/2014 [facility] ELECTROLYTES AST 21 unit/L 0 - 37 10/17/2014 [facility] ELECTROLYTES Glucose Lvl 153 mg/dL 70 - 99 10/17/2014 2Interpretive Data: Adult reference range values reflect the clinical guidelines of the [place] [employer]. [facility] ELECTROLYTES CO2 23 meq/L 24 - 32 10/17/2014 [facility] ELECTROLYTES Calcium Lvl 9.9 mg/dL 8.5 - 10.5 10/17/2014 [facility] ELECTROLYTES BUN 29 mg/dL 7 - 22 10/17/2014 [facility] ELECTROLYTES Creatinine Lvl 1.5 mg/dL 0.5 - 1.4 10/17/2014 [facility] ELECTROLYTES AGAP 15.0 meq/L 10.0 - 20.0 10/17/2014 [facility] ELECTROLYTES B/C Ratio 19 6 - 25 10/17/2014 [facility] ELECTROLYTES Globulin 3.8 g/dL 2.0 - 4.0 10/17/2014 [facility] ELECTROLYTES A/G Ratio 1.1 0.7 - 1.6 10/17/2014 [facility] HEMATOLOGY Segs 95.5 % 45.0 - 75.0 10/17/2014 [facility] HEMATOLOGY Monocytes 1.8 % 2.0 - 12.0 10/17/2014 [facility] HEMATOLOGY Lymphocytes 2.4 % 20.0 - 40.0 10/17/2014 [facility] HEMATOLOGY Lymphocytes # 0.5 K/CMM 1.0 - 5.5 10/17/2014 [facility] HEMATOLOGY Segs-Bands # 20.5 K/CMM 1.5 - 8.1 10/17/2014 [facility] HEMATOLOGY Basophils 0.1 % 0.0 - 1.0 10/17/2014 [facility] HEMATOLOGY Eosinophils 0.2 % 0.0 - 4.0 10/17/2014 [facility] HEMATOLOGY Monocytes # 0.4 K/CMM 0.0 - 0.8 10/17/[address] [facility] Hgb 14.5 g/dL 12.0 - 16.0 10/17/[address] [facility] RBC 5.00 M/CMM 4.20 - 5.40 10/17/[address] [facility] WBC 21.4 K/CMM 3.7 - 10.4 10/17/[address] [facility] MCV 86.2 fL 80.0 - 98.0 10/17/[address] [facility] Hct 43.1 % 36.0 - 48.0 10/17/[address] [facility] RDW 13.5 % 11.5 - 14.5 10/17/[address] [facility] MCHC 33.6 g/dL 32.0 - 36.0 10/17/[address] [facility] MCH 29.0 pg 27.0 - 31.0 10/17/[address] [facility] MPV 7.4 fL 7.4 - 10.4 10/17/[address] [facility] Platelet 383 K/CMM 133 - 450 10/17/2014 [facility] URINE AND STOOL UA Color Ltyellow 05/09/2014 [facility] URINE AND STOOL UA Urobilinogen <=1.0 mg/dL 0.1 - 1.0 05/09/2014 [facility] URINE AND STOOL UA Nitrite Negative (05/09/14 12:10 PM) Negative 05/09/2014 [facility] URINE AND STOOL UA Bili Negative *NA* (05/09/14 12:10 PM) Negative 05/09/2014 [facility] URINE AND STOOL UA Blood Negative (05/09/14 12:10 PM) Negative 05/09/2014 [facility] URINE AND STOOL UA Leuk Est Negative (05/09/14 12:10 PM) Negative 05/09/2014 [facility] URINE AND STOOL UA Sq Epi Occasional /LPF Few /LPF 05/09/2014 [facility] URINE AND STOOL UA Glucose Negative mg/dL Negative mg/dL 05/09/2014 [facility] URINE AND STOOL UA Protein Negative mg/dL Negative mg/dL 05/09/2014 [facility] URINE AND STOOL UA Ketones Negative mg/dL Negative mg/dL 05/09/2014 [facility] URINE AND STOOL UA Mucus Few /LPF None Seen /LPF 05/09/2014 [facility] URINE AND STOOL UA WBC null 0 - 5 05/09/2014 [facility] URINE AND STOOL UA RBC 1 /HPF 0 - 2 05/09/2014 [facility] URINE AND STOOL UA pH 6.0 5.0 - 8.0 05/09/2014 [facility] URINE AND STOOL UA Turbidity Clear (05/09/14 12:10 PM) Clear 05/09/2014 [facility] URINE AND STOOL UA Spec Grav 1.015 <=1.030 05/09/2014 [facility] URINE AND STOOL UA Hyal Cast 1 /LPF 0 - 2 05/09/2014 [facility] CARDIAC ENZYMES CK MB Index null 0.0 - 2.5 05/09/2014 [facility] CARDIAC ENZYMES Troponin-I null 0.00 - 0.40 05/09/2014 [facility] CARDIAC ENZYMES CK MB null 0.5 - 3.6 05/09/2014 [facility] CARDIAC ENZYMES Total CK 105 unit/L 12 - 191 05/09/2014 [facility] CHEM PANEL Total Protein 7.6 g/dL 6.4 - 8.4 05/09/2014 [facility] CHEM PANEL CO2 27 meq/L 24 - 32 05/09/2014 [facility] CHEM PANEL Calcium Lvl 10.1 mg/dL 8.5 - 10.5 05/09/2014 [facility] CHEM PANEL Alk Phos 49 unit/L 39 - 136 05/09/2014 [facility] CHEM PANEL Albumin Lvl 4.5 g/dL 3.5 - 5.0 05/09/2014 [facility] CHEM PANEL ALT 28 unit/L 0 - 65 05/09/2014 [facility] CHEM PANEL AST 25 unit/L 0 - 37 05/09/2014 [facility] CHEM PANEL Creatinine Lvl 1.4 mg/dL 0.5 - 1.4 05/09/2014 [facility] CHEM PANEL Sodium Lvl 137 meq/L 135 - 145 05/09/2014 [facility] CHEM PANEL BUN 34 mg/dL 7 - 22 05/09/2014 [facility] CHEM PANEL Chloride Lvl 104 meq/L 95 - 109 05/09/2014 [facility] CHEM PANEL Potassium Lvl 4.5 meq/L 3.5 - 5.1 05/09/2014 [facility] CHEM PANEL eGFR 39 mL/min/1.73m2 05/09/2014 1Result Comment: The eGFR is calculated using [...] from the National Kidney Disease Education Program (NKDEP) which additionally recommends that when the eGFR is used in patients with extremes of body mass index for purposes of drug dosing, the eGFR should be multiplied by the estimated BMI. [facility] CHEM PANEL B/C Ratio 24 6 - 25 05/09/2014 [facility] CHEM PANEL Bili Total 0.4 mg/dL 0.2 - 1.3 05/09/2014 [facility] CHEM PANEL AGAP 10.5 meq/L 10.0 - 20.0 05/09/2014 [facility] CHEM PANEL Globulin 3.1 g/dL 2.0 - 4.0 05/09/2014 [facility] CHEM PANEL A/G Ratio 1.5 0.7 - 1.6 05/09/2014 [facility] CHEM PANEL Glucose Lvl 96 mg/dL 70 - 99 05/09/2014 2Interpretive Data: Adult reference range values reflect the clinical guidelines of the [place] [employer]. [facility] HEMATOLOGY Eosinophils # 0.1 K/CMM 0.0 - 0.5 05/09/2014 [facility] HEMATOLOGY Monocytes # 0.3 K/CMM 0.0 - 0.8 05/09/2014 [facility] HEMATOLOGY Basophils 0.7 % 0.0 - 1.0 05/09/2014 [facility] HEMATOLOGY Monocytes 4.6 % 2.0 - 12.0 05/09/2014 [facility] HEMATOLOGY Eosinophils 2.6 % 0.0 - 4.0 05/09/2014 [facility] HEMATOLOGY Segs-Bands # 3.8 K/CMM 1.5 - 8.1 05/09/2014 [facility] HEMATOLOGY Lymphocytes # 1.5 K/CMM 1.0 - 5.5 05/09/2014 [facility] HEMATOLOGY Lymphocytes 25.4 % 20.0 - 40.0 05/09/[address] [facility] Segs 66.7 % 45.0 - 75.0 05/09/[address] [facility] MPV 7.6 fL 7.4 - 10.4 05/09/[address] [facility] MCH 28.8 pg 27.0 - 31.0 05/09/[address] [facility] WBC 5.7 K/CMM 3.7 - 10.4 05/09/[address] [facility] Hct 35.4 % 36.0 - 48.0 05/09/[address] [facility] MCV 87.0 fL 80.0 - 98.0 05/09/[address] [facility] RBC 4.07 M/CMM 4.20 - 5.40 05/09/[address] [facility] Hgb 11.7 g/dL 12.0 - 16.0 05/09/[address] [facility] Platelet 372 K/CMM 133 - 450 05/09/[address] [facility] RDW 14.8 % 11.5 - 14.5 05/09/[address] [facility] MCHC 33.1 g/dL 32.0 - 36.0 05/09/2014 [facility] Brain wo contrast CT Brain wo contrast CT CT Head no Contrast: COMPARISON: 04/16/2008 CLINICAL HX: Left arm pain, lethargy TECHNIQUE: Contiguous transaxial images of the brain were performed without administration of IV contrast. FINDINGS: There is no evidence for parenchymal bleed, extra-axial collections, intracranial masses or midline shift. No displaced fractures of the calvarium or other significant bony abnormality is noted. The espana-white matter differentiation is preserved. No acute infarct is evident. The visualized paranasal sinuses and the mastoids are clear. IMPRESSION: No significant acute brain abnormality is noted. SL:05/09/2014 - - Read by: Salvador Luna MD Dictated Date/time: 05/09/14 12:59 Electronically Signed by: Salvador Luna MD 05/09/14 13:03 FINAL REPORT [facility] Chest 2 views Chest 2 views Chest 2 views: COMPARISON: 05/06/2010 FINDINGS: The lungs are clear and well inflated. There are no effusions or other pleural abnormalities. The cardiomediastinal silhouette and the pulmonary vasculature are within normal limits. No significant bony abnormality is noted. IMPRESSION: Normal two-view chest. SL:05/09/2014 - - Read by: Salvador Luna MD Dictated Date/time: 05/09/14 11:02 Electronically Signed by: Salvador Luna MD 05/09/14 11:02 FINAL REPORT [facility] CHEMISTRY eGFR 59 mL/min/1.73m2 06/06/2013 1Result Comment: The eGFR is calculated using [...] from the National Kidney Disease Education Program (NKDEP) which additionally recommends that when the eGFR is used in patients with extremes of body mass index for purposes of drug dosing, the eGFR should be multiplied by the estimated BMI. [facility] CHEMISTRY AGAP 15.2 meq/L 10.0 - 20.0 06/06/2013 Normal [facility] CHEMISTRY Calcium Lvl 9.5 mg/dL 8.5 - 10.5 06/06/2013 Normal [facility] CHEMISTRY Sodium Lvl 141 meq/L 135 - 145 06/06/2013 Normal [facility] CHEMISTRY Chloride Lvl 105 meq/L 95 - 109 06/06/2013 Normal [facility] CHEMISTRY Potassium Lvl 4.2 meq/L 3.5 - 5.1 06/06/2013 Normal [facility] CHEMISTRY CO2 25 meq/L 24 - 32 06/06/2013 Normal [facility] CHEMISTRY Creatinine Lvl 1.0 mg/dL 0.5 - 1.4 06/06/2013 Normal [facility] CHEMISTRY BUN 25 mg/dL 7 - 22 06/06/2013 HI [facility] CHEMISTRY Glucose Lvl 102 mg/dL 70 - 99 06/06/2013 [place] 2Interpretive Data: Adult reference range values reflect the clinical guidelines of the [place] [employer]. [facility] Vital Signs Vital Sign Value Date Comments Source Systolic (mm Hg) 119 04/01/2017 [facility] Diastolic (mm Hg) 64 04/01/2017 [facility] Respitory Rate 18 04/01/2017 [facility] Temperature Oral (F) 98 F 04/01/2017 [facility] Heart Rate 73 04/01/2017 [facility] Systolic (mm Hg) 145 04/01/2017 [facility] Diastolic (mm Hg) 76 04/01/2017 [facility] Respitory Rate 18 04/01/2017 [facility] Heart Rate 72 04/01/2017 [facility] Temperature Oral (F) 98 F 04/01/2017 [facility] Systolic (mm Hg) 133 04/01/2017 [facility] Diastolic (mm Hg) 73 04/01/2017 [facility] Respitory Rate 18 04/01/2017 [facility] Temperature Oral (F) 98.1 F 04/01/2017 [facility] Heart Rate 70 04/01/2017 [facility] Weight 61.5 03/31/2017 [facility] BMI Calculated 24.8 03/31/2017 [facility] Height 157.48 cm 03/31/2017 [facility] BMI Calculated 22.71 03/31/2017 [facility] Weight 60 03/31/2017 [facility] Height 162.56 cm 03/31/2017 [facility] Systolic (mm Hg) 108 10/17/2014 [facility] Diastolic (mm Hg) 42 10/17/2014 [facility] Temperature Oral (F) 98.9 F 10/17/2014 [facility] Respitory Rate 18 10/17/2014 [facility] Heart Rate 85 10/17/2014 [facility] Heart Rate 94 10/17/2014 [facility] Respitory Rate 18 10/17/2014 [facility] Systolic (mm Hg) 96 10/17/2014 [facility] Diastolic (mm Hg) 52 10/17/2014 [facility] Systolic (mm Hg) 124 10/17/2014 [facility] Diastolic (mm Hg) 103 10/17/2014 [facility] Respitory Rate 18 10/17/2014 [facility] Heart Rate 65 10/17/2014 [facility] Weight 68.182 10/17/2014 [facility] Systolic (mm Hg) 121 05/09/2014 [facility] Diastolic (mm Hg) 64 05/09/2014 [facility] Respitory Rate 22 05/09/2014 [facility] Temperature Oral (F) 98.6 F 05/09/2014 [facility] Diastolic (mm Hg) 64 05/09/2014 [facility] Respitory Rate 15 05/09/2014 [facility] Systolic (mm Hg) 151 05/09/2014 [facility] Weight 63.182 05/09/2014 [facility] BMI Calculated 28.13 05/09/2014 [facility] Height 149.86 cm 05/09/2014 [facility] Temperature Oral (F) 98.2 F 05/09/2014 [facility] Heart Rate 98 05/09/2014 [facility] Systolic (mm Hg) 159 05/09/2014 [facility] Diastolic (mm Hg) 74 05/09/2014 [facility] Respitory Rate 16 05/09/2014 [facility] Heart Rate 87 06/06/2013 [facility] Respitory Rate 18 06/06/2013 [facility] Systolic (mm Hg) 144 06/06/2013 [facility] Diastolic (mm Hg) 65 06/06/2013 [facility] Systolic (mm Hg) 133 06/06/2013 [facility] Diastolic (mm Hg) 64 06/06/2013 [facility] Respitory Rate 0 06/06/2013 [facility] Systolic (mm Hg) 120 06/06/2013 [facility] Diastolic (mm Hg) 60 06/06/2013 [facility] Respitory Rate 0 06/06/2013 [facility] Height 157.48 cm 06/06/2013 [facility] Weight 61.818 06/06/2013 [facility] Heart Rate 105 06/06/2013 [facility] Weight 61.818 06/05/2013 [facility] Height 152.4 cm 06/05/2013 [facility] Encounters Location Location Details Encounter Type Encounter Number Reason For Visit Attending Provider ADM Date DC Date Status Source [facility] DS [id number] BASAL CELL CARCINOMA OF RIGHT CHEEK FANTASMA LEWIS 06/06/2013 06/06/2013 Active [facility] [id number] Kolton Chong 05/09/2014 05/09/2014 [facility] [id number] Allyson Horta 10/17/2014 10/17/2014 [facility] Observation [id number] Todd Marsh 03/31/2017 04/01/2017 [facility] Procedures Procedure Code Date Perfomer Comments Source Excision [id number] [facility] Excision [id number] [facility]
--- OUTSIDE RECORDS SUMMARY | 2019-01-10 15:37 | XMS REPORT | Summary of Care ---
Author Organization Unknown Address Unknown Phone Unavailable Encounter [facility] Shiela([facility]OR[facility]) [id number] Date(s): 05/09/14 - 05/09/14 [facility] [id number] [address] Discharge Diagnosis: Palpitations Discharge Disposition: Home Physician Attending: Kolton Chong MD Reason for Visit CHEST PAINS Vital Signs 1 2 3 Most recent to oldest [Reference Range]: 149.86 cm (05/09/14 10:15 AM) Height 98.6 DegF (05/09/14 2:00 PM) 98.2 DegF (05/09/14 10:15 AM) Temperature Oral [96.4-99.1 DegF] 121 mmHg (05/09/14 2:00 PM) 151 mmHg *HI* (05/09/14 12:12 PM) 159 mmHg *HI* (05/09/14 10:15 AM) Systolic Blood Pressure [90-140 mmHg] 64 mmHg (05/09/14 2:00 PM) 64 mmHg (05/09/14 12:12 PM) 74 mmHg (05/09/14 10:15 AM) Diastolic Blood Pressure [60-90 mmHg] 22 BRMIN *HI* (05/09/14 2:00 PM) 15 BRMIN (05/09/14 12:12 PM) 16 BRMIN (05/09/14 10:15 AM) Respiratory Rate [14-20 BRMIN] 98 bpm (05/09/14 10:15 AM) Peripheral Pulse Rate [60-100 bpm] 63.182 kg (05/09/14 10:15 AM) Weight 28.13 m2 (05/09/14 10:15 AM) Body Mass Index Problem List Condition Effective Dates Status Health Status Informant Basal cell carcinoma Active of cheek(Confirmed) GERD - Active Gastro-esophageal reflux disease(Confirmed) Hyperlipidemia(Confi Active rmed) Hyperlipidemia(Confi Active rmed) Hypertension(Confirm Active ed) Hypertension(Confirm Active ed) Allergies, Adverse Reactions, Alerts Substance Reaction Severity Status NKDA Active Medications No data available for this section Results ELECTROLYTES Most recent to 1 oldest [Reference Range]: Sodium Lvl [135-145 137 mEq/L mEq/L] (05/09/14 12:02 PM) Potassium Lvl 4.5 mEq/L [3.5-5.1 mEq/L] (05/09/14 12:02 PM) Chloride Lvl [95-109 104 mEq/L mEq/L] (05/09/14 12:02 PM) CO2 [24-32 mEq/L] 27 mEq/L (05/09/14 12: PM) AGAP [10.0-20.0 10.5 mEq/L mEq/L] (05/09/14:02 PM) CHEM PANEL Most recent to 1 oldest [Reference Range]: Creatinine Lvl 1.4 mg/dL [0.5-1.4 mg/dL] (05/09/14 12: PM) eGFR 39 mL/min/1.73m2 1 *NA* (05/09/14: PM) BUN [7-22 mg/dL] 34 mg/dL *HI* (05/09/14 12:02 PM) B/C Ratio [6-25] 24 (05/09/14 12:02 PM) Glucose Lvl [70-99 96 mg/dL 2 mg/dL] (05/09/14 12:02 PM) Total Protein 7.6 g/dL [6.4-8.4 g/dL] (05/09/14 12:02 PM) Albumin Lvl [3.5-5.0 4.5 g/dL g/dL] (05/09/14 12:02 PM) Globulin [2.0-4.0 3.1 g/dL g/dL] (05/09/14 12:02 PM) A/G Ratio [0.7-1.6] 1.5 (05/09/14 12:02 PM) Calcium Lvl 10.1 mg/dL [8.5-10.5 mg/dL] (05/09/14 12:02 PM) ALT [0-65 unit/L] 28 unit/L (9/19/14 12:02 PM) AST [0-37 unit/L] 25 unit/L (05/09/14 12:02 PM) Alk Phos [39-136 49 unit/L unit/L] (05/09/14 12:02 PM) Bili Total [0.2-1.3 0.4 mg/dL mg/dL] (05/09/14 12:02 PM) 1Result Comment: The eGFR is calculated [...] values reflect the clinical guidelines of the [place] [employer]. CARDIAC ENZYMES Most recent to 1 oldest [Reference Range]: Total CK [12-191 105 unit/L unit/L] (05/09/14 12:02 PM) CK MB [0.5-3.6 <0.5 ng/mL ng/mL] (05/09/14 12:02 PM) CK MB Index <0.5 [0.0-2.5] (05/09/14 12:02 PM) Troponin-I <0.02 ng/mL [0.00-0.40 ng/mL] (05/09/14 12:02 PM) URINE AND STOOL Most recent to 1 oldest [Reference Range]: UA Turbidity [Clear] Clear (05/09/14 12:10 PM) UA Color Ltyellow *NA* (05/09/14 12:10 PM) UA pH [5.0-8.0] 6.0 (05/09/14 12:10 PM) UA Spec Grav 1.015 [<=1.030] (05/09/14 12:10 PM) UA Glucose [Negative Negative mg/dL mg/dL] *NA* (05/09/14 12:10 PM) UA Blood [Negative] Negative (05/09/14 12:10 PM) UA Ketones [Negative Negative mg/dL mg/dL] *NA* (05/09/14 12:10 PM) UA Protein [Negative Negative mg/dL mg/dL] (05/09/14 12:10 PM) UA Urobilinogen <=1.0 mg/dL [0.1-1.0 mg/dL] *NA* (05/09/14 12:10 PM) UA Bili [Negative] Negative *NA* (05/09/14 12:10 PM) UA Leuk Est Negative [Negative] (05/09/14 12:10 PM) UA Nitrite Negative [Negative] (05/09/14 12:10 PM) UA WBC [0-5 /HPF] <1 /HPF (05/09/14 12:10 PM) UA RBC [0-2 /HPF] 1 /HPF (05/09/14 12:10 PM) UA Sq Epi [Few /LPF] Occasional /LPF *NA* (05/09/14 12:10 PM) UA Hyal Cast [0-2 1 /LPF /LPF] (05/09/14 12:10 PM) UA Mucus [None Seen Few /LPF /LPF] *NA* (05/09/14 12:10 PM) HEMATOLOGY Most recent to 1 oldest [Reference Range]: WBC [3.7-10.4 K/CMM] 5.7 K/CMM (05/09/14 12:02 PM) RBC [4.20-5.40 4.07 M/CMM M/CMM] *LOW* (05/09/14 12:02 PM) Hgb [12.0-16.0 g/dL] 11.7 g/dL *LOW* (05/09/14 12:02 PM) Hct [36.0-48.0 %] 35.4 % *LOW* (05/09/14 12:02 PM) MCV [80.0-98.0 fL] 87.0 fL (05/09/14 12:02 PM) MCH [27.0-31.0 pg] 28.8 pg (05/09/14 12:02 PM) MCHC [32.0-36.0 33.1 g/dL g/dL] (05/09/14 12:02 PM) RDW [11.5-14.5 %] 14.8 % *HI* (05/09/14 12:02 PM) Platelet [133-450 372 K/CMM K/CMM] (05/09/14 12:02 PM) MPV [7.4-10.4 fL] 7.6 fL (05/09/14 12:02 PM) Segs [45.0-75.0 %] 66.7 % (05/09/14 12:02 PM) Lymphocytes 25.4 % [20.0-40.0 %] (05/09/14 12:02 PM) Monocytes [2.0-12.0 4.6 % %] (05/09/14 12:02 PM) Eosinophils [0.0-4.0 2.6 % %] (05/09/14 12:02 PM) Basophils [0.0-1.0 0.7 % %] (05/09/14 12:02 PM) Segs-Bands # 3.8 K/CMM [1.5-8.1 K/CMM] (05/09/14 12:02 PM) Lymphocytes # 1.5 K/CMM [1.0-5.5 K/CMM] (05/09/14 12:02 PM) Monocytes # [0.0-0.8 0.3 K/CMM K/CMM] (05/09/14 12:02 PM) Eosinophils # 0.1 K/CMM [0.0-0.5 K/CMM] (05/09/14 12:02 PM) Medications Administered During Your Visit No data available for this section Immunizations No data available for this section
[2019-01-10] MEDS ORDERED: ACETAMINOPHEN 325 MG TAB PO ONE (16:15)
[2019-01-10 16:31] LABS: BILIRUBIN,URINE NEGATIVE (NEGATIVE); CLARITY,URINE CLEAR (CLEAR); COLOR,URINE YELLOW (YELLOW); KETONES,URINE TRACE (NEGATIVE); LEUKOCYTE ESTERASE ,URINE NEGATIVE (NEGATIVE); NITRITE,URINE NEGATIVE (NEGATIVE); PROTEIN,URINE DIPSTICK TRACE (NEGATIVE); URINE UROBILINOGEN 0.2 mg/dL (0.2 - 1)
[2019-01-10 16:42] LABS: BACTERIA,URINE MODERATE /HPF; EPITHELIAL CELLS,URINE FEW /LPF
[2019-01-10 16:43] LABS: MUCUS,URINE MODERATE (RARE)
--- NOTE | 2019-01-10 16:54 | Diagnostic Imaging Report ---
EXAM: CHEST 2 VIEWS, PA and lateral DATE: 01/10/2019 Time stamp on exam: 4:29 PM INDICATION: COMPARISON: None FINDINGS: LINES/TUBES: None LUNGS: No consolidations or edema. Focal atelectasis at the left lung base. PLEURA: No effusions or pneumothorax. HEART AND MEDIASTINUM: Normal size and contour. BONES AND SOFT TISSUES: No acute findings. Mild degenerative changes of the spine. IMPRESSION: No acute thoracic abnormality. Signed by: Dr. Wolfgang Moncada DO on 01/10/2019 4:50 PM
[2019-01-10 17:33] LABS: STREPTOCOCCUS GRP A ANTIGEN NEGATIVE (NEGATIVE)
[2019-01-10 17:41] LABS: INFLUENZAE A&B ANTIGEN (RAPID) NEGATIVE (NEGATIVE)
[2019-01-10 18:39] LABS: BASOPHILS % 0.2 % (0.0-1.0); EOSINOPHILS # (AUTO) 1.2 (0.0-0.4); HEMATOCRIT 34.1 % (34.2-44.1); HEMOGLOBIN 11.5 g/dL (12.0-16.0); LYMPHOCYTES % 8.3 % (18.0-39.1); MEAN CORPUSCULAR HEMOGLOBIN 28.7 pg (28-32); MEAN CORPUSCULAR HGB CONC 33.7 g/dL (31-35); MONOCYTES # (AUTO) 0.4 (0.2-0.8); MONOCYTES % 3.1 % (4.4-11.3); NEUTROPHILS # (AUTO) 9.7 (2.1-6.9); NEUTROPHILS % 77.6 % (38.7-80.0); PLATELET COUNT 315 x10e3/uL (140-360); RED BLOOD COUNT 4.01 x10e6/uL (3.6-5.1); RED CELL DISTRIBUTION WIDTH 13.9 % (11.7-14.4)
[2019-01-10 18:49] VITALS: BP 105/73
[2019-01-10 18:54] LABS: CREATININE, SERUM 1.96 mg/dL (0.57-1.11)
== END 2019-01-10 18:52 | disposition home or self-care (01) ==
LOC: ER 15:33
DX: R50.9 Fever, unspecified (principal); B34.9 Viral infection, unspecified
CPT/HCPCS: 36415; 71046; 80048; 81001; 83518; 85025; 87070; 87400; 99283

== ENCOUNTER 2020-09-28 13:56 | Emergency (ER) | payer MEDICARE ==
[~2020-09-28] VITALS: Ht 157.5 cm; Wt 59.9 kg
== END 2020-09-28 15:32 | disposition home or self-care (01) ==
LOC: ER 13:59
DX: U07.1 COVID-19 (principal); R06.02 Shortness of breath; R53.1 Weakness; I12.9 Hypertensive chronic kidney disease with stage 1 through stage 4 chronic kidney disease, or unspecified chronic kidney disease; N18.9 Chronic kidney disease, unspecified; E78.5 Hyperlipidemia, unspecified
CPT/HCPCS: 99283

== ENCOUNTER 2025-04-07 10:30 | Emergency (ER) | payer MEDICARE ==
[~2025-04-07] VITALS: Ht 157.5 cm; Wt 59.9 kg
[2025-04-07 11:09] LABS: BASOPHILS % 0.5 % (0.0-1.0); EOSINOPHILS % 10.4 % (0.0-6.0); LYMPHOCYTES % 23.2 % (18.0-39.1); MONOCYTES % 4.3 % (4.4-11.3); NEUTROPHILS % 61.4 % (38.7-80.0); RED CELL DISTRIBUTION WIDTH 13.6 % (11.7-14.4)
[2025-04-07 11:35] LABS: INR 0.94
[2025-04-07 11:38] LABS: EST GLOMERULAR FILTRATION RATE 55.0 ML/MIN (>=60)
[2025-04-07] MEDS: DICYCLOMINE HCL 20 MG/2 ML VIAL IM ONE (11:39)
[2025-04-07] MEDS: SODIUM CHLORIDE 0.9% 500ML 500 ML IV ONE (11:40)
[2025-04-07] MEDS: ONDANSETRON HCL INJ 2MG/ML 2ML 2 MG/ML VIAL IV STA (11:41)
[2025-04-07] MEDS ORDERED: DICYCLOMINE HCL10 MG PO (12:46)
[2025-04-07 13:00] VITALS: PULSE 70; RESP 18; TEMP 98
[2025-04-07 13:06] VITALS: BP 168/76; PULSE 70; RESP 18; TEMP 98.1; O2SAT 100
== END 2025-04-07 13:06 | disposition home or self-care (01) ==
LOC: ER 10:43
DX: R10.13 Epigastric pain (principal); K29.70 Gastritis, unspecified, without bleeding; I12.9 Hypertensive chronic kidney disease with stage 1 through stage 4 chronic kidney disease, or unspecified chronic kidney disease; N18.9 Chronic kidney disease, unspecified; E78.5 Hyperlipidemia, unspecified
CPT/HCPCS: 36415; 71045; 74176; 80053; 83690; 83735; 84484; 85025; 85610; 85730; 93005; 99284; J0500; J2405; J2470; J7040

== ENCOUNTER 2025-04-24 08:06 | Emergency (ER) | payer MEDICARE ==
[~2025-04-24] VITALS: Ht 157.5 cm; Wt 59.9 kg
[~2025-04-24 08:06] MED LIST: DICYCLOMINE HCL10 MG PO
[2025-04-24 08:17] VITALS: PULSE 80; RESP 16; TEMP 97.7
[2025-04-24 09:13] LABS: BASOPHILS % 0.5 % (0.0-1.0); EOSINOPHILS % 15.5 % (0.0-6.0); LYMPHOCYTES % 25.7 % (18.0-39.1); MONOCYTES % 5.4 % (4.4-11.3); NEUTROPHILS % 52.7 % (38.7-80.0); RED CELL DISTRIBUTION WIDTH 13.2 % (11.7-14.4)
[2025-04-24 09:56] LABS: EST GLOMERULAR FILTRATION RATE 44.0 ML/MIN (>=60)
[2025-04-24 10:32] LABS: LEUKOCYTE ESTERASE ,URINE NEGATIVE (NEGATIVE); PROTEIN,URINE DIPSTICK 1+ (NEGATIVE); URINE UROBILINOGEN 0.2 mg/dL (0.2 - 1)
[2025-04-24] MEDS: HYDROCODONE/APAP 5MG-325MG TAB PO ONE (10:32)
[2025-04-24] MEDS: SODIUM CHLORIDE 0.9% 1000ML 1,000 ML IV STA (10:33)
[2025-04-24] MEDS: ONDANSETRON HCL INJ 2MG/ML 2ML 2 MG/ML VIAL IV STA (10:33)
[2025-04-24 10:51] LABS: EPITHELIAL CELLS,URINE FEW /LPF; WBC,URINE (MAN) 0-5 /HPF (0-5)
[2025-04-24] MEDS ORDERED: METHOCARBAMOL500 MG PO (11:12)
[2025-04-24 12:19] VITALS: BP 134/61; PULSE 72; RESP 17; O2SAT 97
== END 2025-04-24 11:45 | disposition home or self-care (01) ==
LOC: ER 08:14
DX: M54.50 Low back pain, unspecified (principal); I12.9 Hypertensive chronic kidney disease with stage 1 through stage 4 chronic kidney disease, or unspecified chronic kidney disease; N18.9 Chronic kidney disease, unspecified; K29.70 Gastritis, unspecified, without bleeding; M62.838 Other muscle spasm; E78.5 Hyperlipidemia, unspecified
CPT/HCPCS: 36415; 80053; 81001; 85025; 87086; 99284; J2405; J7030